=== PATIENT | female | born 1930 | race Caucasian/White ===

== ENCOUNTER 2020-11-12 12:32 | Emergency (ER) | payer OTHER ==
[~2020-11-12] VITALS: Ht 165.1 cm; Wt 61.2 kg
--- NOTE | ~2020-11-12 | EMS ---
[address] [address] EMS Patient Care Report Name: SMITA MONGE Room #: REG HELENE Jimenez#: [id number] Admission: 11/12/20 Attend Phys: Discharge: Date of : [birth year] Report #: [id number] THIS REPORT FOR: //name// Report Transmitted: 11/12/2020 14:35 EMS Care Summary [facility] MED-ACT Incident [id number] @ 11/12/2020 11:50 Incident Location [address] [place] [address] Patient SMITA MONGE Female, 89 Years 1930 Patient Address [address] [place] [address] Patient History Dementia,Hypertension (HTN),Alzheimer's, Patient Allergies Hydrocodone,Tramadol, Patient Medications Sertraline, Amlodipine, ASA, Losartan, Chief Complaint She is not acting her normal self Disposition Transported No Lights/Kunia Dispatch Reason Psychiatric Problem/Abnormal Behavior/Suicide Attempt Transported To [facility] Narrative Arrived to find pt seated in chair in apartment, a&ox4, NAD and talking with [facility][id number] personnel. [address] [address] EMS Patient Care Report Name: SMITA MONGE Room #: REG HELENE Melendez.#: [id number] Admission: 11/12/20 Attend Phys: Discharge: Date of : [birth year] Report #: [id number] Pts family reports that pt moved to the [facility] this past Thursday and since then, they have noticed increased confusion and hallucinations. Family reports this type of behavior is not like pt. Facility staff also report pt has been aggressive towards them and there has been mention of suicidal ideation without a plan. Family also mention that pt tried to "jump out of the moving car" when she was with family. Family report pt does have Alzheimer's and dementia and typically cannot recall events. Pt is aware of family members. Family contacted pts PCP and advised pt be transported to [place] for further evaluation and psychiatric assessment. Pt is agreeable to be transported but is confused about where she is located, mentions to EMS that she "heard mother is in just up the hallway". Pt was able to stand up and walk to cot and sit down without incident. Pt secured with cot straps and taken to MICU for non-emergent transport to [place] as family requested. Pt condition remained unchanged and was without further complaint. Pt was able to self-transfer from cot to hospital bed without incident. Pt report and transfer of care given to RECYCLE DRIVER room #4. Initial Vitals @12:22P: 94,R: 21,SpO2: 97, @12:18P: 94,R: 12,BP: 115/80,Pain: 0/10,Temp: 98.4F,Glucose: 150,SpO2: 97, @PTAP: 84,R: 16,BP: 137/84,GCS: 14,SpO2: 97,Revised Trauma: 12, @12:27P: 108,R: 22,BP: 122/74,GCS: 14,SpO2: 97,Revised Trauma: 12, Assessments @12:10MENTAL:Event Oriented,Person Oriented,Hallucinations,Confused,SKIN:HEENT:Eyes: Right Pupil: 2-mm,Eyes: Left Pupil: 2-mm,Head/Face: No Abnormalities,Neck/Airway: No Abnormalities,LUNG SOUNDS:General: No Abnormalities,ABDOMEN:General: No Abnormalities,PELVIS//GI:No Abnormalities,EXTREMITIES:Left Arm: No Abnormalities,Right Arm: No Abnormalities,Left Leg: No Abnormalities,Right Leg: No Abnormalities,PULSE:Radial: 2+ Normal,NEURO:No Abnormalities, Impression Behavioral/psychiatric episode Procedures @PTASurgical Mask on PatientResponse: Unchanged Timeline [facility] [address] [place] [address] EMS Patient Care Report Name: SMITA MONGE Room #: REG HELENE Jimenez#: [id number] Admission: 11/12/20 Attend Phys: Discharge: Date of : [birth year] Report #: [id number] STEM CLEANING MACHINE FEEDER,Surgical Mask on Patient,Response: Unchanged STEM CLEANING MACHINE FEEDER,BP: 137/84 M,PULSE: 84,RR: 16 R,SPO2: 97 Ox,ETCO2: ,BG: ,PAIN: ,GCS: 14, 11:48,Call Received 11:48,Psap Call 11:50,Dispatched 11:51,En Route 12:00,On Scene 12:06,At Patient 12:17,Depart Scene 12:18,BP: 115/80 M,PULSE: 94,RR: 12 R,SPO2: 97 Ox,ETCO2: ,B,PAIN: 0,GCS: , 12:22,BP: / M,PULSE: 94,RR: 21 R,SPO2: 97 Ox,ETCO2: ,BG: ,PAIN: ,GCS: , 12:27,BP: 122/74 M,PULSE: 108,RR: 22 R,SPO2: 97 Ox,ETCO2: ,BG: ,PAIN: ,GCS: 14, 12:41,At Destination 12:44,Call Closed Disclaimer v1.1 Copyright 2020 [employer] This EMS Care Summary contains data elements from the applicable legal record (which may be displayed differently). It is designed to provide pertinent information for the following purposes: continuity of care, clinical quality, and state data reporting. The complete legal record is available to ED staff and administrators of the receiving hospital in [employer] Patient Tracker. All data is provided "as is."
[2020-11-12 12:58] LABS: ABSOLUTE NEUTROPHILS 5.4 thou/uL (1.4-8.2); BASOPHILS 0.7 % (0.0-2.0); EOSINOPHILS 0.8 % (0.0-3.0); HEMATOCRIT 35.9 % (37.0-47.0); HEMOGLOBIN 12.5 gm/dL (12.0-15.0); LYMPHOCYTES 15.8 % (24.0-44.0); MCHC 34.8 g/dL (28.0-37.0); MCV 91.9 fL (80.0-100.0); MONOCYTES 7.9 % (1.0-8.0); PLATELET COUNT 250 thou/uL (150-400); POLYS 74.8 % (36.0-66.0); RBC 3.91 mil/uL (4.20-5.00); RDW 15.8 % (10.5-14.5); WBC 7.2 thou/uL (4.0-11.0)
[2020-11-12 13:07] LABS: ANION GAP 9 mmol/L (7-16); BUN 11 mg/dL (7-18); CALCIUM 9.2 mg/dL (8.5-10.1); CHLORIDE 98 mmol/L (98-107); CO2 27 mmol/L (21-32); CREATININE 0.9 mg/dL (0.6-1.0); GLUCOSE 133 mg/dL (74-106); POTASSIUM 3.2 mmol/L (3.5-5.1); SODIUM 134 mmol/L (136-145)
[2020-11-12 13:14] LABS: ALBUMIN 3.2 g/dL (3.4-5.0); SGOT 23 U/L (15-37); SGPT 23 U/L (14-59); TOTAL BILIRUBIN 2.3 mg/dL (0.2-1.0); TOTAL PROTEIN 7.2 g/dL (6.4-8.2); TROPONIN-I <0.06 ng/mL (<0.06)
[2020-11-12 13:20] LABS: URINE BILIRUBIN NEGATIVE (Negative); URINE BLOOD 1+ (Negative); URINE CLARITY CLEAR; URINE COLOR YELLOW; URINE GLUCOSE-RANDOM* NEGATIVE (Negative); URINE KETONES NEGATIVE (Negative); URINE LEUKOCYTES-REFLEX NEGATIVE (Negative); URINE NITRITE-REFLEX NEGATIVE (Negative); URINE PROTEIN (DIPSTICK) NEGATIVE (Negative); URINE UROBILINOGEN 0.2 E.U./dl (0.2-1.0)
[2020-11-12 13:29] LABS: AMP/METHAMP Negative (Negative); BARBITURATES Negative (Negative); BENZODIAZEPINES Negative (Negative); COCAINE Negative (Negative); METHADONE Negative (Negative); OPIATES Negative (Negative); PCP Negative (Negative)
[2020-11-12 13:32] LABS: SQUAMOUS 0-3 Few /LPF (0-3); URINE RBC 3-10 Few /HPF (NONE SEEN); URINE WBC-REFLEX 0-5 Rare /HPF (0-5)
[2020-11-12 13:33] LABS: BACTERIA-REFLEX 1-9 Few /HPF (None Seen); CASTS None Seen /LPF (None Seen); CRYSTALS None Seen /LPF (None Seen)
[2020-11-12 15:45] VITALS: BP 130/61
--- NOTE | 2020-11-12 16:04 | EKG ---
[address] [place] [address] ELECTROCARDIOGRAM REPORT Name: SMITA MONGE Room #: REG [id number] Admission: 11/12/20 Attend Phys: Discharge: Date of : [birth year] Report #: [id number] [facility]ly [facility] ED Test Date: 2020-11-12 Test Time: 14:15:42 Pat Name: SMITA MONGE Department: Room: Gender: F Administrative Officer: devorah : 1930 Requested By: Manny Traylor Order Number: [id number] MD: Flo Gongora Measurements Intervals [place] Rate: 67 P: 53 DC: 154 QRS: -12 QRSD: 145 T: 12 QT: 448 QTc: 473 Interpretive Statements Sinus rhythm Right bundle branch block No previous ECG available for comparison Electronically Signed On 11-12-2020 16:04:14 CDT by Flo Gongora [email or web address] <ELECTRONICALLY SIGNED> By: Flo Gongora MD, [facility] 11/12/20 1604 1415 1415 Flo Gongora MD, FACC /EPI
== END 2020-11-12 16:04 ==
LOC: ER 12:32
PROVIDERS: Nurse Practitioner
DX: R46.89 Other symptoms and signs involving appearance and behavior (principal); Z20.822 Contact with and (suspected) exposure to COVID-19; I10 Essential (primary) hypertension; R41.0 Disorientation, unspecified; R44.3 Hallucinations, unspecified; Z88.5 Allergy status to narcotic agent; Z88.8 Allergy status to other drugs, medicaments and biological substances

== ENCOUNTER 2020-11-12 14:50 | Inpatient (IN) | payer OTHER ==
[~2020-11-12] VITALS: Ht 152.4 cm; Wt 44.3 kg
--- NOTE | 2020-11-12 19:42 | NUR ---
1615 arrived unit on a w/c with daughter, STOKER INSTALLER STAFF, and security. Pt is oriented to self. Refused assessments and vital sign. pt arrived unit with a white T shirt she have on, hearin aids and hearing aids gas charger. Pt have been exit seeking upon arrival, pt WAS redirected. Consent to treat and fall contract signed by DPHAIDER. No sign of acute distress noted on pt. No sign of si/hi. No c/o pain at this time. Pt ambulates with a steady gait. DPOA assisted with pt assessments OVER the phone, because pt was uncooperative. UPON ASSESSMENTS DPOA stated pt fell on THE October. PT IS ON FALL RISK PROTOCOL. pt have hx of htn, pacemaker, right kneel replacement, left hip replacement done 4 years ago. DPOA stated pt have hx of anxiety. PT refused to eat dinner. At this time pt is in the day room resting. Will continue to monitor.
[2020-11-12 20:00] VITALS: BP 128/68
[2020-11-12 20:12] VITALS: BP 128/68
--- NOTE | 2020-11-13 05:10 | NUR ---
PATIENT HAS BEEN UP PACING THE HALLS AND SEEKING TO EXIT OUT THE DOORS. AT BEGINNING OF SHIFT PATIENT WAS APPEARED VERY ANXIOUS AND DID NOT WANT TO BE SPOKEN TOO OR TOUCHED. BY 2100 PATIENT HAD CALMED AND WAS VERY PLEASANT AND COOPERATIVE. SHE ASKED FOR HELP IN GETTING WATER. SHE TOOK HER MEDS WHOLE WITH WATER WITH SOME ENCOURAGEMENT. PATIENT WAS AGITATED WITH ANOTHER NEW PATIENT THAT WAS FOLLOWING HER AND ASKING HER THE SAME QUESTIONS OVER AND OVER. PT WAS MOVED AWAY FROM THIS PATIENT. PATIENT DENIES PAIN/SI/HI/AVH. SHE WAS GIVEN PRN SEROQUEL LATE IN EVENING D/T INCREASED AGITATION FROM OTHER PATIENT AND UNABLE TO CALM SELF. PT PACED THE UNIT SOME MORE AND WAS ASSISTED TO BED. PATIENT HAS BEEN SLEEPING. PATIENT IS WITH STEADY PACE AND IS NOT A FALL RISK. BED IS IN LOW POSITION. ROUTINE ROUNDS TO ASSESS SAFETY AND STATUS OF PATIENT.
[2020-11-13 06:29] LABS: CHOLESTEROL 198 mg/dL (<200); HDL CHOLESTEROL 83 mg/dL (>40); LDL CHOLESTEROL 102 mg/dL (<100); TC:HDL 2.4 Ratio (Not establshd); TRIGLYCERIDE 65 mg/dL (<150); VLDL 13 mg/dL (<40)
[2020-11-13 06:40] LABS: SERUM ASSESSMENT Clear
--- NOTE | 2020-11-13 14:40 | NUR ---
PT ALERT AND ORIENTED TIMES THREE AGITATED ON AND OFF THIS SHIFT. PT ISOLATED IN ROOM THIS MORNING. REFUSED BREAKFAST, LUNCH AND MORNING GROUPS. PT DID ATTEND AFTERNOON, AND TOOK HER MEDS. PT DENIES SI/HI/AH/VH. PT HAS LITTLE INTERACTIONS WITH STAFF AND PEERS.
--- NOTE | 2020-11-13 16:18 | NUR ---
ALONSO briefly spoke with pt's daughter Nelsy off the unit. ALONSO explained that she has reviewed pt's documentation, and saw that pt does have a financial dpoa, but does not have a healthcare dpoa. She contacted both Martha and Marivel who both said a healthcare dpoa does not appear to exist. ALONSO explained this in an inportant document if placement into memory care becomes an issues. ALONSO said she will speak with the [facility] director and Dr. Romero about next steps and then make contact tomorrow. They said ok. ALONSO spoke with Lauren and Dr. Romero who said he will identify the needs and discuss what to do next. Dr. Romero spoke to ALONSO after speaking with Nelsy and said that the family would like pt to have hearing aids put in once charged and then asked if she would like to sign a healthcare dpoa; Dr. Romero will assess for pt's ability to do so. SW team will continue to follow pt during her stay on this unit.
[2020-11-13 20:03] VITALS: BP 99/81
[2020-11-14 02:06] LABS: GLYCOHEMOGLOBIN (HGB A1C) 5.7 % (4.8-5.6)
--- NOTE | 2020-11-14 05:22 | NUR ---
11-13-20 CARE TRANSFERRED 1899. LATER PT RESTING IN BED LEFT SIDE LYING WITH EYES CLOSED, PT EASILY AWAKEN TO VOICE. PT AAOX1, VSS, RR EVEN AND NONLABORED ON RA. PT DENIES PAIN AND SI/HI. PT PRESENTS WITH CONFUSION, BUT REMAINS CALM AND COOPERATIVE. DURING MEDICATION ADMIN PT B/P 102/58 AND NORVASC WAS HELD R/T BELOW HCP PERIMETERS. PT BED WAS ADJUSTED FOR COMFORT, LOWEST POSITION, LOCKED AND ALARM SET. PT HAS BEEN PLACED ON FALL PRECAUTION R/T PT HISTORY OF RECENT FALLS. PT WILL CONTINUE TO BE MONITOR PER [facility] PROTOCOL.
[2020-11-14 10:42] VITALS: BP 108/52
--- NOTE | 2020-11-14 13:43 | NUR ---
PATIENT HAS BEEN UP, AND OUT ON THE UNIT, AMBULATE WITH SLOW STEADY GAIT. PATIENT TOOK ALL MEDICATION WHOLE WITHOUT DIFFICULTY. PATIENT IS EATING MEALS, AND DRINKING FLUID WELL. PATIENT IS ALERT, AND ORIENTED X 1, SHE IS FORGETFUL, VERY CONFUSED, "WAITING FOR MY TO CALL". PER DAUGHTER, HAS BEEN X 6YRS AGO. PATIENT'S DAUGHTER (JAKE) CALLED FOR UPDATES, UPDATE PROVIDED, AND SHE WAS VERY APPRECIATIVE. LABORER SYRUP MACHINE'S NUMBER GIVEN TO JAKE PER HER REQUEST. PATIENT IS CALM, COOPERATIVE WITH CARE, SHE WANDERS, BUT REDIRECTABLE. NO AGITATION OR AGGRESSIVE BEHAVIOR NOTED AT THIS TIME. AFFECT IS FLAT/BLUNTED, MOOD IS EUTHYMIC. NO SIGN OF ACUTE DISTRESS NOTED, WILL CONTINUE TO REDIRECT, AND MONITOR FOR SAFETY.
[2020-11-14 20:00] VITALS: BP 120/67
[2020-11-14 20:07] VITALS: BP 120/67
--- NOTE | 2020-11-14 20:28 | H ---
[facility] [address] [address] HISTORY AND PHYSICAL Name: SMITA MONGE Room #: 522B-B ADM IN M.R.#: [id number] Admission: 11/12/20 Attend Phys: Bret Romero DO Discharge: Date of : [birth year] Report #: [id number] THIS REPORT FOR: cc: FAM - Family physician unknown FAM - Family physician unknown Bret Romero DO ~ DATE OF SERVICE: 11/12/2020 INPATIENT PSYCHIATRIC EVALUATION ATTENDING PSYCHIATRIST: Bret Romero DO. BEAD WIRE TAPER: Steven Torres M.D. REASON FOR ADMISSION: As follows: Increasing confusion, hallucinations, possibly visual and auditory, attempted to get out of a moving car within the last day, agitation with staff at [facility]. HISTORY OF PRESENT ILLNESS: An 89-year-old female, brought for increased confusion, agitation, suspected auditory and visual hallucinations were included. She was placed this past Thursday at the [facility] in [place], [place]. She was basically moved from her home in [place], [place] where she has lived her whole life. She has 2 daughters in the [place] area. Allegedly, the patient had suicidal ideations without plan. The attempting to exit the vehicle was due to her concerns about being controlled. In addition, the patient does have a history of Alzheimer's type dementia dating back two or so years, hypertension. ALLERGIES: No known allergies. ROS: limited ue to degree of dementia SOCIAL HISTORY: No alcohol, tobacco or recreational drug use. She is . I think this was about 14 years. Daughter Nelsy is the one I spoke to. There is another daughter there. EDUCATIONAL HISTORY: High school graduate. No college. Homemaker. FAMILY HISTORY: No family history of dementia or psychiatric illness. No medical problems run in the family. CODE STATUS: She will be a no code. REVIEW OF SYSTEMS: Unable to get a reliable review of systems due to her dementia. Weight is 61.24 kilos. LABORATORY DATA: Laboratories today done in the ER. Hematology: White count [facility] [address] [place] [address] HISTORY AND PHYSICAL Name: SMITA MONGE Room #: 522B-B ADM IN M.R.#: [id number] Admission: 11/12/20 Attend Phys: Bret Romero DO Discharge: Date of : [birth year] Report #: [id number] 7.2, H and H 12.5 and 35.9, platelet count 250. Chemistries today, sodium 134, potassium 3.2, chloride 98, bicarbonate 27, anion gap 9, BUN 11, creatinine 0.9, estimated GFR 59, glucose 133, calcium 9.2, total bilirubin high at 2.3, etiology unknown. AST 23, ALT 23, alkaline phosphatase 100. Troponin less than 0.06. NT-proBNP 341, total protein 7.2, albumin 3.2. Urinalysis showed 1+ blood, 3-10 rbc's, 1-9 bacteria. Culture was not triggered. Urine drug screen was negative. COVID-19 Bull test was negative. VITAL SIGNS: Today as follows, BP 130/61, pulse 81, O2 sat 98%, and respirations 18. She is afebrile. PHYSICAL EXAMINATION: GENERAL: Well developed, in hospital gown, slow gait, appears to have limited mobility of her left upper extremity. MENTAL STATUS EXAMINATION: This is a well-developed, unkempt female, appearing stated age. Attention limited. Concentration limited. Speech normal in rate. Thought process linear. Very limited thought content. Poverty of thought, delusional about her whereabouts, her ability to leave. Denied suicidal ideation and homicidal ideation. Denied auditory, visual, or tactile hallucinations. Memory not formally tested. Insight limited. Judgment limited. Fund of knowledge below average. CURRENT MEDICATIONS IN THE HOSPITAL. Vitamin E 400 international units oral daily, sertraline 50 mg oral daily for supplementation and depression ____, vitamin for supplementation, losartan 100 mg oral daily for hypertension, cyanocobalamin 500 mcg oral daily for supplementation, calcium with vitamin D Caltrate 600 one tablet oral daily for supplementation, aspirin 81 mg oral daily for heart protection, donepezil 10 mg oral at bedtime for cognitive enhancement, amlodipine 10 mg oral at bedtime with blood pressure parameter of 110 or higher. Electrocardiogram performed in the Emergency Room is as follows, ventricular rate 67, WV interval 154 milliseconds, QTc 473 milliseconds, had a right bundle branch block and sinus rhythm. There was a chest x-ray done in the ER, which had findings of blunting of right costophrenic angle, medial left basilar infiltrate, which I did not see nor did the ER CAR MECHANIC, questionable 1 cm pulmonary nodule in the left perihilar region versus superimposition artifact. FORMULATION: An 89-year-old female admitted from independent living facility for agitation, increased confusion, and concern for hallucinations. PLAN: The patient is admitted voluntarily by DPOA. I did speak with both of her daughters in the ER. Evaluate, stabilize, obtain collateral. Medications as discussed. We will see how she does overnight before adding scheduled [facility] [address] [place] [address] HISTORY AND PHYSICAL Name: SMITA MONGE Room #: 522B-B ADM IN M.R.#: [id number] Admission: 11/12/20 Attend Phys: Bret Romero DO Discharge: Date of : [birth year] Report #: [id number] psychotropic medications. We will go ahead and add a tiny dose of Seroquel for agitation or anxiety. Time spent on this case about 45 minutes. STRENGTHS: She is insured, supportive family. WEAKNESSES: old age, neurodegenerative disease. <ELECTRONICALLY SIGNED> By: Bret Romero DO 11/14/202027 171 21 Bret Romero DO /nt
--- NOTE | 2020-11-15 10:25 | NUR ---
Yesterday, ALONSO and Dr. Romero met with pt. She did not appear to found of Dr. Pacheco, so SW spoke with pt 1-on-1. SW asked pt if she knew what a "power of ip technology transactions attorney is?" Pt responded "it is an ip technology transactions attorney that holds all the power." SW asked if she knew what a DPOA can do for her? She said they have power over things. SW then explained in her words what a power of ip technology transactions attorney was and asked pt if she knew that she has a financial. She said "I do?" SW said yes it is Martha. Pt then rolled her eyes and said something about finances. SW then asked pt if she knew she did not have a healthcare DPOA. Pt did not appear to recognize what she said, and then again responded about attorneys having power. After, she began to drift of into another conversation that was not related to DPOA. SW did tell her that she spoke to her 3 daughters. And pt said "you did?! Well how are they?" SW said they were okay and explained that they are working to get her out of her. Pt responded that it was her who put her on this unit. Pt's has been 14 years. ALONSO and Dr. romero spoke with all 3 daughters via phone and explained that pt needs memory care. As the conversation was beginning, pt began banging on SW's door and the unit doors while screaming. Cary asked if memory care was absolutely necessary? ALONSO told her that what she was hearing was her mom, and that she likely needs a locked area that wont permit her to elope. Dr. Romero mirrored the same opinion as ALONSO. Dr. Romero explained that they will need to obtain guardianship in order to place pt in a memory care unit. The daughters debated between memory care and hiring additional staffing at the [facility]; pt was just moved into [place] there. Cary asked if pt can be moved on Thursday. ALONSO explained that want to make sure Dr. Romero has an opportunity to properly medicate pt so that she can still be active, but not disruptive as [place] may decide to dismiss her as she may need a higher level of care even with staffing in her apartment. The daughter's agreed. Discharge early next week is contingent upon pt's behaviors over the weekend. SW team will continue to follow pt during her stay on this unit.
[2020-11-15 11:05] VITALS: BP 141/71
--- NOTE | 2020-11-15 15:13 | NUR ---
Alert and orientated to name only. Denies SI/HI. Breath sounds clear. Reg HR auscultated. Color pink with brisk capillary refill and palpable peripheral pulses. Independent with voiding. Active bowel sounds over soft, flat abdomen. Ambulates with regular, steady gait. 1445 Began exit seeking. Scheduled seraquel given with little results. Currently in dining room.
[2020-11-15 20:05] VITALS: BP 106/77
--- NOTE | 2020-11-16 03:57 | NUR ---
PATIENT CARE ASSUMED AT 1900. PATIENT UP WANDERING IN THE FREIRE AND AROUND THE NURSING STATION AT THAT TIME. A&OX SELF ONLY. PLEASANTLY CONFUSED AT TIMES, DELUSIONAL AND POSSIBLY RESPONDING TO HALLUCINATIONS AT OTHER TIMES - STATING "NAOMIE? ARE YOU LISTENING?", "SHOW THE WOMAN YOUR STUFF & GET OUT HERE", "DO I GO DOWNSTAIRS OR DO YOU NOT KNOW ANY OF IT?". DID TAKE MEDS WHOLE, THOUGH WAS RESISTANT STATING "I TOOK MY MEDS TODAY, THOSE ARE WAY TOO MUCH". EXPLAINED TO PATIENT SHE TAKES MEDS MULTIPLE TIMES A DAY. HELD 2100 AMLODIPINE DUE TO BP OF 106/77. PATIENT IS LYING IN BED WITH EYES CLOSED. CONTINUING Q12 MINUTE SAFETY CHECKS.
[2020-11-16 09:23] VITALS: BP 133/73
--- NOTE | 2020-11-16 13:14 | NUR ---
Pt was discussed in tx team and that she may not be appropiate go to the [facility] although the family reported to having her live in [place] with / staffing. ALONSO advised that she should send updates to the [facility] to ensure that they know pt's level of functioning and will still accept pt. Tx team agreed. ALONSO contacted the [facility] at [phone] and obtained the fax # of [phone]. They confirmed that [place]. Dr. Romero and ALONSO contacted Nelsy and provided to her an update. Dr. Romero explained he will be making some meds changes. He also advised Nelsy that hospital staff have to give the [facility] updates on pt so they can ensure they can provide for pt's needs. She said ok. ALONSO again advised that even if the [facility] can move pt to [place] or keep her in [place] with staff, she and her sisters should consider applying for guardianship should she need memory care in the future. Most units will not accept a pt without a healthcare DPOA. she said ok. SW team will continue to follow pt during her stay on this unit.
--- NOTE | 2020-11-16 15:59 | NUR ---
Alert and orientated to name only. Denies SI/HI. Hearing aides charged for several hours per her request. Brushed teeth and combed hair independently. Breath sounds clear. Reg HR auscultated. Color pink with brisk capillary refill and palpable peripheal pulses. No edema noted. Independent with voiding. Active bowel sounds over soft, flat abdomen. Can't remember last BM. Milk of Magnesia given per prn order. Ambulates with regular, steady gait. Currently interacting with staff and peers, delusions and hallucinations noted.
[2020-11-16 19:35] VITALS: BP 106/65
--- NOTE | 2020-11-17 01:47 | NUR ---
RESUMED CARE OF PATIENT THIS EVENING. PATIENT WAS SITTING IN DAY AREA BETWEEN TWO OF HER PEERS. COMPLIANT WITH MEDICATIONS. DENIES PAIN. DOZED OFF ON COUCH IN DAY AREA FOR A LITTLE WHILE AND THEN WAS DIRECTED TO BED. PATIENT CALM AND PLEASANT, A&O X SELF ONLY. AMBULATES INDEPENDENTLY WITH STEADY GAIT, TOILETS INDEPENDENTLY WELL. NO BOWEL MOVEMENT REPORTED THIS EVENING. WILL MONITOR, Q12 MINUTE SAFETY CHECKS.
[2020-11-17 09:10] VITALS: BP 116/71
--- NOTE | 2020-11-17 13:55 | NUR ---
Alert and orientated to self only. Denies SI/HI. Stated she could hear much better once hearing aides were charged. Confused speech with some visual hallucinations. Interacting with peers and staff. Frequently offering hugs to staff and peers. Breath sounds clear. Reg HR auscultated. Color pink with brisk capillary refill and palpable peripheral pulses. Independent with voiding. Active bowel sounds over soft, flat abdomen. Ambulates with regular, steady gait.
[2020-11-17 19:48] VITALS: BP 111/65
--- NOTE | 2020-11-17 21:55 | NUR ---
RESUMED PATIENT CARE AT 1900. PATIENT LYING DOWN ON COUCH IN DAY ROOM WITH BLANKET OVER HER AND HER EYES CLOSED. PATIENT EASILY ROUSED, SAT UP AND COMPLIANT WITH MEDICATIONS. LAYED BACK ON COUCH UNTIL STAFF ASSISTED HER TO HER ROOM TO LAY DOWN IN BED. NO S/S OF DISTRESS/DISCOMFORT. DENIES PAIN/SI/HI/AVH. PATIENT CONTINUES ON Q12 MINUTE SAFETY CHECKS.
[2020-11-18 09:23] VITALS: BP 115/51
--- NOTE | 2020-11-18 15:30 | NUR ---
HAS BEEN COOPERATIVE AND PLEASANT SO FAR THIS SHIFT-OUT OF ROOM WITH QUEING FROM STAFF FOR MEALS AND GROUPS-STRUCTURES FREE TIME IN ROOM RESTING ON BED OR READING NEWSPAPER. STATES DURING 1;1 WITH THIS NURSE THAT THE BEHAVIOR OF TWO FEMALE PEERS ON UNIT WHO ARE YELLING OBSCENITIES AT STAFF "REALLY UPSETS ME" AND DOESN'T WANT TO BE AROUND THEM. APPETITE IS GOOD-MED COMPLIENT. TOILETS SELF WITH NO EPISODES OF INCONTINENCE SO FAR THIS SHIFT. IS ORIENTED TO NAME ONLY. GAIT IS STEADY WITHOUT ASSISTIVE DEVICES.DENIES C/O PAIN/DISCOMFORTAM LOSARTAN HELD FOR BP GERALD 108/58
[2020-11-18 19:33] VITALS: BP 121/85
[2020-11-18 20:45] VITALS: BP 121/85
--- NOTE | 2020-11-18 21:44 | NUR ---
PATIENT AWAKENED TO TAKE HER HS MEDS. PT WOKE UP AND SAID, "WHY DO THEY WANT ME TO ?" SHE THEN STARTED CRYING AND THEN SAID HER IS SOMEWHERE IN THIS PLACE AND SHE DOESN'T BELIEVE ANYTHING HE TELLS HER. SHE CRIED MORE AND I ASKED HER WHY SHE THOUGHT SHE WAS GOING TO ? SHE SAID TO JUST LEAVE HER ALONE AND LET HER . SHE DIDN'T WANT TO GO BACK OUT OF HER ROOM AND DOWNSTAIRS TO BE HUMILIATED AGAIN. WHEN I TRIED TO GET HER TO SIT UP IN HER BED SHE AGAING CRIED OUT DON'T MAKE ME GO DOWN THERE (DINING ROOM?). SHE STATES SHE DOESN'T WANT TO STAY HERE ANYMORE. SHE WANTS TO GO HOME. PATIENT FINELY CALMED AND TOOK HER MEDS AND THEN SAID SHE JUST WANTED TO GO BACK TO SLEEP. PT RESTING IN ROOM AT THIS TIME. BED IN LOW POSITION AND ROUTINE ROUNDS TO ASSESS SAFETY AND STATUS OF PATIENT. CONTINUING TO MONITOR. SHE DENIES PAIN BUT IS DELUSIONAL. NO HI/AVH.
[2020-11-19 09:44] VITALS: BP 130/72
--- NOTE | 2020-11-19 10:50 | NUR ---
Patient care asumed by 0700, she was sleeping in room, got up for breakfast, alert and oriented x3, calm and cooperative, assessment completed, lungs clear, active bowel sound, ambulate with a steady gait, she attends groups and paticipated, took medication whole with no problem, blood pressure 130/72,73,18,96.4 100% 02, her dpoa called for update, she denies si/hi, will continue to monitor patient.
--- NOTE | 2020-11-19 11:32 | NUR ---
ALONSO and Dr. Romero spoke with Eddie at the [facility] and provided an update. Lanette said her notes make her nervous because they do not have a locked unit. SW team will continue to follow pt during her stay on this unit.
--- NOTE | 2020-11-19 13:30 | NUR ---
RT Progress Note- Leah has improved throughout the course of this week in impulsivity and ability to focus in recreation therapy groups. Leah is now able to engage in groups without wandering away or becoming paranoid of peers who are also present. She is able to hear well when her hearing aids have been charged and this may be contributing to improvement in participation. RT staff will continue to encourage participation and progress towards goals.
[2020-11-19 20:10] VITALS: BP 107/64
--- NOTE | 2020-11-20 02:34 | NUR ---
PATIENT HAS BEEN CALM AND COOPERATIVE TONIGHT. SHE IS A/0X1. PLEASANTLY CONFUSED AND VERY [place]. HEARING AIDS REMOVED AT BEDTIME AND PLACED ON ADJUNCT INSTRUCTOR IN THE MED ROOM. PT DID AWAKEN AND WALK TO THE DINING ROOM TO SIT IN A RECLINER FOR AWHILE BEFORE BEING ASSISTED BACK TO HER ROOM TO LAY IN HER BED. PATIENT IS CONTINENT OF B AND B. SHE TOOK HER HS MEDS WHOLE WITH WATER. SHE DENIES PAIN. NO SIGNS OF SI/HI/AVH TONIGHT. ROUTINE ROUNDS TO ASSESS SAFETY AND STATUS OF PATIENT. PATIENT WALKS WITH STEADY GAIT. NO NEGATIVE BEHAVIORS NOTED TONIGHT.
[2020-11-20 09:55] VITALS: BP 111/54
--- NOTE | 2020-11-20 11:09 | NUR ---
CARE ASSUMED AT 0700, PATIENT IN BED SLEEPING, GOT UP FOR BREAKFAST, CALM AND COPERATIVE, ALERT AND ORIENTED X2, ASSESSMENT COMPLETED, ACTIVE BOWEL SOUND, LUNGS CLEAR, PATIENT TAKES MEDICATION WHOLE, AMBULATE WITH A STEADY GAIT, SHE ATTENDS GROUPS AND PATICIPATED, SHE WENT BACK TO BED AFTER GROUP, VITAL/SIGNS 111/54,73,17,96.4,99, SHE HAD A GOOD DAY NO BEHAVIOR CHANGES, PATIENT DENIES SI/HI.
--- NOTE | 2020-11-20 13:59 | NUR ---
ALONSO received another email from Bessie asking referrals be sent out. ALONSO asked her if they have come to a decision. She said no. ALONSO also got a phone call from [facility] stating they were unsure of the d/c date. ALONSO and Dr. Romero contacted Bessie as she is the [facility] dpoa of pt. Dr. Romero asked her to be the main contact as too much information was getting misconstrued. She said she would gladly be the main contact. She said that is it obvious to her that pt cannot remain in [place], so she and her sisters are interested in memory care for pt. She told ALONSO that the backup plan is pt returning back to [facility] with one of her sisters staying with her until they find a place they like. She said someone from the [facility] will be contacting ALONSO. She also wanted a referral sent to [facility] ALONSO sent referrals to the following: [facility] SW team will cotninue to follow pt during her stay on this unit.
[2020-11-20 19:39] VITALS: BP 93/47
[2020-11-20 21:00] VITALS: BP 97/54
--- NOTE | 2020-11-21 04:20 | NUR ---
PATIENT CARE WAS RESUMED AT 1900. SHE IS ALERT AND SHE AMBULATES SHE IS CONTINENT OF BOWELL AND BLADDER. BS ACTIVE X4 QUADS ,SHE IS ABLE TO VERBALIZED NEEDS.SHE IS IN BED WITH ALARM. Q 12MINUTES CHECK ARE ONGOING.SHE TOOK HER MEDS WHOLE WITH SOME RESISTSNCES EARLIER.NO CONCERN NOTED AT THIS TIME. CONTINUE CARE AND MONITOR.
[2020-11-21 06:28] LABS: CALCIUM 8.9 mg/dL (8.5-10.1); CREATININE 0.7 mg/dL (0.6-1.0); POTASSIUM 4.2 mmol/L (3.5-5.1)
[2020-11-21 08:50] VITALS: BP 122/65
--- NOTE | 2020-11-21 10:19 | NUR ---
PATIENT HAS BEEN UP, AND OUT ON THE UNIT, AMBULATES WITH STEADY GAIT. PATIENT TOOK ALL MEDICATION WHOLE WITHOUT DIFFICULTY, SHE IS EATING MEALS, AND DRINKING FLUID WELL. PATIENT DENIES SUICIDAL/HOMICIDAL IDEATION, AND PHYSICAL PAIN. NOT ABLE TO APPROPRIATELY RESPOND TO FURTHER ASSESSMENT QUESTIONS DUE TO COGNITIVE IMPAIRMENT, AND LITTLE SHELL TRIBE. PATIENT NOTICED RESPONDS TO INTERNAL STIMULI, TALKS TO SELF, AND UNSEEN OTHERS. AFFECT IS AXIOUS, MOOD FRUSTRATED. NO SIGN OF ACUTE DISTRESS NOTED AT THIS TIME, WILL CONTINUE TO REDIRECT, AND MONITOR FOR SAFETY.
--- NOTE | 2020-11-21 11:40 | NUR ---
Pt was discussed in tx team. ALONSO explained the conversation that she had with Bessie after Dr. romero left the office, and that was that since the plan has changed to memory care pt can likely remain until Thursday. Dr. Romero okayed that plan. ALONSO provided updates as follows to Bessie on placement: [facility] - Referral resent. 11/21 [facility] - Returned admission's call. No answer. ALONSO left a msg. 11/[address] [facility] - Reviewing referral. 11/21 [facility] - Reviewing referral. 11/21 [facility] - reached out to SW today. Referral sent. 11/21 [facility]- Reviewing referral. 11/21 [facility] - Denied. Full until the end of the month. SW team will continue to follow pt during her stay on this unit.
[2020-11-21 19:16] VITALS: BP 94/53
[2020-11-21 20:00] VITALS: BP 94/53
--- NOTE | 2020-11-21 23:40 | NUR ---
PATIENT CARE RESUMED AT I900. SHE IS ALERT AND ORIENTED. AMBULATES AND SHE DENIES PAINS AND DISCOMFORT AT THIS TIME. SHE DENIES SI/AVH/HI. VERBALIZES HER NEEDS. SHE IS ON FALL PRECAUTIONS. SHE TOOK HER MEDS WHOLE AND BED IS LOW, LOCKED AND ALARMED. NO CONCERN NOTED AT THIS TIME. Q 12 MINUTES CHECK IS ONGOING. SHE HAS A YELLOW TOP AND NON SKID SOCK CONTINUE CARE AND MONITOR.
[2020-11-22 09:31] VITALS: BP 128/73
--- NOTE | 2020-11-22 10:15 | NUR ---
Alert and orientated to name only. Denies SI/HI. Confused speech. Ambulates with regular, steady gait. Breath sounds clear. Reg HR auscultated. Color pink with brisk capillary refill and palpable peripheral pulses. Continent of urine per toilet. Active bowel sounds over soft, flat abdomen. States she had BM 2 days ago. Hearing aides placed in ears. Currently sitting in dining room watching TV with peers.
[2020-11-22 19:33] VITALS: BP 116/43
[2020-11-22 19:45] VITALS: BP 116/43
--- NOTE | 2020-11-22 23:35 | NUR ---
Assumed care on 11/22/20 @ 1900, noted to be Hard of Hearing, hearing aides removed @ HS and put on the black top machine operator. Alert and oriented X2. Dementia noted, patient presents with confusion as well as hearing difficulties resulting in misunderstanding of what is being asked of her. Tylenol 650 provided @ 20:00 for head pain 09/20. Retired to bed @ HS, bed in low position, will continue to monitor for safety and comfort as per unit protocol.
[2020-11-23 09:18] VITALS: BP 123/81
--- NOTE | 2020-11-23 12:40 | NUR ---
Alert and orientated to name only. Denies SI/HI. Ambulating in unit with reg, steady gait. Breath sounds clear. Reg HR auscultated. Color pink with brisk capillary refill and palpable peripheral pulses. No edema noted. Independent with voiding. Recreational therapist reports that pt was tearful in bathroom and stating that it was very hard to pass BM. Went to assess pt and she stated that she "had taken care of it" and then stated she had a large, hard BM that she flushed. Perineium palpated externally, no masses noted. Again asked pt when she had BM and she stated "this AM". Discussed with Arianna Mayer ordered. Sitting in day room with peers, no s/o distress.
--- NOTE | 2020-11-23 17:35 | NUR ---
ALONSO spoke with Karen at the [facility] concerning admission. Karen informed the Pt has been accepted and they are able to admit on Thursday. Discharge was scheduled for 11/26/2020 @ 1000. The Pt's daughter Bessie will pick the Pt up and transport.
[2020-11-23 19:38] VITALS: BP 114/65
--- NOTE | 2020-11-24 04:37 | NUR ---
PATIENT SITTING IN COMMON AREA WITH PEERS. SHE IS AAOX3. COMPLIANT WITH STAFF AND CALM WITH HER BEHAVIOR. PATIENT IS [place] BUT IS ABLE TO UNDERSTAND QUESTIONS. STATES THAT SHE IS FEELING GOOD THIS EVENING. DENIEA PAIN OR NEEDS. TAKES MEDICATIONS PRESCRIBED. WENT TO ROOM TO REST AFTER MEDICATION PASS. VSS. NO DISTRESS NOTED. WILL CONTINUE TO MONITOR PATIENT FOR CHANGE IN STATUS.
[2020-11-24 09:26] VITALS: BP 121/64
--- NOTE | 2020-11-24 14:24 | NUR ---
Assumed pt care at 0700. Pt was wandering the unit. Alert and oriented to person. Assessments completed,vss. Pt is [place]. Denies si/hi, denies pain at this time. Took meds whole, no difficulty noted. Ambulates with a steady gait. No sign of acute distress, noted upon assessments. Calm, pleasant and cooperative with care. Makes needs known to staff. continent of bowel and bladder. After lunch pt was confused but redirectable. AT this time pt is snacking in the day room. WILL CONTINUE TO MONITOR PT.
[2020-11-24 20:11] VITALS: BP 113/68
--- NOTE | 2020-11-24 23:13 | NUR ---
Resumed patient care at 1900. Patient lying in bed in room at that time. No s/s of distress or discomfort. States "oh, heavens no" to pain assessment question. Patient is [place], alert to self. Pleasant and redirectable. Compliant with medication pass, no difficulty noted. Currently lying in bed with eyes closed. Continues on q12 minute safety checks.
[2020-11-25 09:09] VITALS: BP 112/77
[2020-11-25 11:03] VITALS: BP 112/77
--- NOTE | 2020-11-25 12:52 | NUR ---
1250 RESUMMED CARE FROM OVERNIGHT SHIFT THIS AM, PATIENT ALERT TO SELF ONLY. PATIENT ATE BREAKFAST TOOK MEDICATION WITHOUT INCIDENCE, PATIENT CALM COOPERATIVE. PATIENTS ABDOMEN SOFT BOWEL SOUNDS PRESENT PATIENTS LUNGS CLEAR. PATIENT DENIES SI/HI/AH/VH AT PRESENT PATIENT DENIES PAIN, WILL CONINUE TO MONITOR PATIENT FOR SAFETY AND BEHAVIORS.
[2020-11-25 19:15] VITALS: BP 90/60
--- NOTE | 2020-11-26 01:17 | NUR ---
PATIENT WAS IN HER ROOM HS SHIFT ARRIVED TO THE UNIT. SHE IS ALERT AND ORIENTED TO PERSON AND SITUATION. PATIENT IS HARD OF HEARING AND HAS TO BE ASKED QUESTIONS A FEW TIMES FOR COMPHREHENSION. SHE DENIES PAIN OR NEEDS TONIGHT. SHE I SCOMPLIANT WITH HER MEDICATIONS AND TREATMENT. NO S/S OF DISTRESS NOTED. VSS. WILL CONTINUE TO MONITOR PATIENT FOR SAFETY.
[2020-11-26] MEDS ORDERED: NORVASC10 MG PO (07:57)
[2020-11-26] MEDS ORDERED: ARICEPT10 M1 PO (07:57)
[2020-11-26] MEDS ORDERED: BAYER CHEWABLE81 MG PO (07:58)
[2020-11-26] MEDS ORDERED: COZAAR100 MG PO (07:58)
[2020-11-26] MEDS ORDERED: ZOLOFT25 MG PO (07:59)
[2020-11-26] MEDS ORDERED: SEROQUEL 100 M100 M1 PO (08:02)
[2020-11-26] MEDS ORDERED: CALCIUM 600 +1 EAC1 PO (08:03)
[2020-11-26] MEDS ORDERED: COLACE100 MG PO (08:04)
[2020-11-26] MEDS ORDERED: B-12500 MCG PO (08:04)
[2020-11-26] MEDS ORDERED: VITAMIN E400 UNIT PO (08:05)
[2020-11-26] MEDS ORDERED: PRENATAL PO (08:05)
[2020-11-26 09:35] VITALS: BP 130/65
--- NOTE | 2020-11-26 14:22 | NUR ---
DISCHARGE INSTRUCTIONS REVIEWED WITH DAUGHTER JAKE WHO SIGNED PT INTO HOSPITAL-AFTER THIS DISCUSION JAKE REPORTS THAT SHE IS NOT THE DPOA HER SISTER SARAH IS AND SARAH IS ON WAY TO HOSPITAL TO PICK PT UP SO NOT ABLE TO BE REACHED BY PHONE. JAKE DID STATE SHE WOULD SHARE THIS INFO WITH SARAH. UNABLE TO LOCATE HEATING AIDE AT TIME OF DC AND DAUGHTER REPORTS BRA AND T-SHIRT ALSO MISSING-DAUGHTER MET WITH Alek CARDONA RN RE MISING HEARING AIDE. PT ALERT/COOPERATIVE,SMILING AT TIME OF DC. DENIES SI/SH/HI AT DC-DENIES PAIN OR DISCOMFORT. DC VIA WC ACCOMPNIED BY DAUGHTER SARAH AND NURSING STAFF TO PRIVATE VEHICLE. TO GO TO [facility]-ATTEMPTED TO CALL NURSING REPORT X 3 FROM [phone] AND MESSAGE LEFT FOR NURSE TO RETURN CALL.ADDENDUM APPROX 15 MIN AFTER PT DC HEARING AIDE LOCATED- DAUGHTER CONTACTED BY MARC
--- NOTE | 2020-11-28 22:29 | D ---
[facility] [place] [id number] DISCHARGE SUMMARY Name: SIMTA MONGE Room #: 522B-B DIS IN M.R.#: [id number] Admission: 11/12/20 Attend Phys: Bret Romero DO Discharge: 11/26/20 Date of : [birth year] Report #: [id number] THIS REPORT FOR: cc: FAM - Family physician unknown FAM - Family physician unknown Bret Romero DO ~ DATE OF SERVICE: 11/26/2020 INPATIENT PSYCHIATRIC DISCHARGE SUMMARY ATTENDING PSYCHIATRIST: Bret Romero DO COURT COMMISSIONER AT TIME OF DISCHARGE: Dr. Pinon. 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 ADDITIONAL COMORBIDITIES: Include hypertension, losartan, Norvasc; history of hypokalemia. The patient will be discharging to the [facility] for memory care, psychiatric and medical care by receiving facility. DISCHARGE DIET: Regular diet, 24/ assistance and supervision. activity level: as tolerated LABORATORY DATA: This admission A1c was 5.7, calcium 8.9, total cholesterol 198, triglycerides 65, LDL 102, HDL 83. REASON FOR ADMISSION: An 89-year-old female with increased confusion, agitation, suspected auditory and visual hallucinations. She was sent out from the [facility] where she was in an independent living, recently placed her from [place], [place]. HOSPITAL COURSE: The patient was admitted to Geriatric Psychiatry Unit. Initially, the patient was very exit seeking, irritable, refusing medication efforts. we were able to get that favorably improved. We had her on Seroquel regimen also. The patient then was felt to need memory care. So some extra time was taken to get her situated as the [facility] only had plain Assisted Living. DISCHARGE MEDICATIONS: Donepezil 10 mg oral at bedtime for cognitive enhancement, amlodipine besylate 10 mg oral daily for hypertension, losartan 100 mg oral daily for hypertension and renal protection, aspirin 81 mg oral daily, sertraline 25 mg oral daily, Seroquel 100 mg oral 3 times a day, calcium carbonate with vitamin D 1 tablet daily, docusate 100 mg oral twice daily for bowel motility, vitamin B12 500 mcg oral daily for supplementation, vitamin E [facility] [address] [place] [address] DISCHARGE SUMMARY Name: SMITA MONGE Room #: 522B-B DIS IN M.R.#: [id number] Admission: 11/12/20 Attend Phys: Bret Romero DO Discharge: 11/26/20 Date of : [birth year] Report #: [id number] 400 international units oral daily for supplementation, vitamin. PROGNOSIS: For this patient is guarded given the challenges of her. <ELECTRONICALLY SIGNED> By: Bret Romero DO 11/28/20 [id number] Bret Romero, DO /nt
== END 2020-11-26 11:00 | DRG 57 ==
LOC: SBH
PROVIDERS: Hospitalist; ADMIT Psychiatry & Neurology Psychiatry; ATTEND Psychiatry & Neurology Psychiatry
DX: G30.9 Alzheimer's disease, unspecified (principal); F02.81 Dementia in other diseases classified elsewhere, unspecified severity, with behavioral disturbance; R45.851 Suicidal ideations; I10 Essential (primary) hypertension; Z96.651 Presence of right artificial knee joint; Z96.642 Presence of left artificial hip joint; E87.6 Hypokalemia; Z79.899 Other long term (current) drug therapy; Z79.82 Long term (current) use of aspirin; Z95.0 Presence of cardiac pacemaker
CPT/HCPCS: 10880